=== PATIENT | male | born 1960 | race Caucasian/White ===

== ENCOUNTER 2018-01-15 08:56 | Day surgery (SDC) | payer OTHER ==
[2018-01-15 10:20] LABS: ADD MAN DIFF? NO
[2018-01-15 10:30] LABS: INR 1.25; PROTIME 15.9 Sec (11.9-14.9); PT RATIO 1.2
[2018-01-15 10:31] LABS: ABNORMAL IP MESSAGE 1; HEMATOCRIT 39.2 % (42.0-52.0); HEMOGLOBIN 13.5 g/dl (14.0-18.0); MEAN CORPUSCULAR HGB CONC 34.4 g/dl (32.0-37.0); MEAN CORPUSCULAR VOLUME 84.1 fl (82.0-101.0); MEAN PLATELET VOLUME 8.7 fl (7.4-10.4); PARTIAL THROMBOPLASTIN TIME 33.8 Sec (25.0-35.0); PLATELET COUNT 71 10^3/UL (140-415); POSITIVE DIFF @See below; RED BLOOD COUNT 4.66 10^6/ul (4.70-6.10)
[2018-01-15 10:31] LABS: WHITE BLOOD COUNT 1.7 10^3/ul (4.8-10.8)
[2018-01-15 10:34] LABS: ALANINE AMINOTRANSFERASE 62 IU/L (13-69); ALBUMIN 4.1 g/dl (3.3-4.9); ALBUMIN/GLOBULIN RATIO 0.91; ALKALINE PHOSPHATASE 126 IU/L (42-121); ANION GAP 14 (8-16); ASPARTATE AMINO TRANSFERASE 62 IU/L (15-46); BILIRUBIN,INDIRECT 0.9 mg/dl (0-1.1); BILIRUBIN,TOTAL 0.9 mg/dl (0.2-1.3); CARBON DIOXIDE 23 mmol/L (21-31); CHLORIDE 110 mmol/L (97-110); GLUCOSE 132 mg/dl (70-220); TOTAL PROTEIN 8.6 g/dl (6.1-8.1)
[2018-01-15 10:36] LABS: HOLD TRANSMISSIONS 1
[2018-01-15 10:38] LABS: BLOOD UREA NITROGEN 11 mg/dl (7-20); CALCIUM 8.5 mg/dl (8.4-10.2); CREATININE 0.67 mg/dl (0.61-1.24); POTASSIUM 4.4 mmol/L (3.5-5.1); SODIUM 143 mmol/L (135-144)
[2018-01-15 11:07] LABS: ANISOCYTOSIS 2+ (0-0); BAND NEUTROPHILS % (M) 2 % (0-4); EOSINOPHILS % (M) 2 % (0-7); LYMPHOCYTES #M 0.6 10^3/ul (0.8-2.9); LYMPHOCYTES % (M) 36 % (15-51); MICROCYTOSIS 2+ (0-0); MONOCYTE #M 0.1 10^3/ul (0.3-0.9); MONOCYTES % (M) 8 % (0-11); OVALOCYTES 1+ (0-0); PLATELET ESTIMATE DECREASED; POIKILOCYTOSIS 1+ (0-0); REACTIVE LYMPHOCYTES #M 0.1 10^3/ul (0.0-0.0); REACTIVE LYMPHOCYTES% (M) 6 % (0-0); SEG NEUT #M 0.8 10^3/ul (1.6-7.5); SEGMENTED NEUTROPHILS (M) % 46 % (39-77); SMUDGE%M 1 % (0-0)
[2018-01-15] MEDS ORDERED: MIDAZOLAM 1 MG/ML 2 ML INJ (11:46)
[2018-01-15] MEDS ORDERED: ROCURONIUM 50 MG INJ (11:46)
[2018-01-15] MEDS ORDERED: PROPOFOL 20 ML (11:46)
[2018-01-15] MEDS ORDERED: CEFAZOLIN 1 GM INJ (11:46)
[2018-01-15] MEDS ORDERED: GLYCOPYRROLATE 0.4 MG INJ (11:46)
[2018-01-15] MEDS ORDERED: ONDANSETRON 4 MG INJ (11:46)
[2018-01-15] MEDS ORDERED: FENTAnyl 50 MCG/ML VIAL (11:46)
[2018-01-15] MEDS ORDERED: DEXAMETHASONE 4 MG/ML 1 ML INJ (11:46)
[2018-01-15] MEDS ORDERED: NEOSTIGMINE 3 MG/3 ML SYRINGE (11:46)
[2018-01-15] MEDS: POLYMYXIN/BACITRACIN 1L IRRIG IRR (12:10)
[2018-01-15] MEDS: ROPIVACAINE 0.5 % 30 ML VIAL (12:10)
[2018-01-15] MEDS ORDERED: SUGAMMADEX SODIUM 200 MG/2 ML VIAL IV (12:34)
== END 2018-01-15 15:28 | disposition home or self-care (01) ==
LOC: SDS 08:56
DX: T84.89XA Other specified complication of internal orthopedic prosthetic devices, implants and grafts, initial encounter (principal); Y79.1 Therapeutic (nonsurgical) and rehabilitative orthopedic devices associated with adverse incidents; Y83.8 Other surgical procedures as the cause of abnormal reaction of the patient, or of later complication, without mention of misadventure at the time of the procedure; M20.21 Hallux rigidus, right foot; I10 Essential (primary) hypertension; E11.9 Type 2 diabetes mellitus without complications
CPT/HCPCS: 28291; 73610-RT; 80053; 82962; 85025; 85610; 85730; 88304; 88311

== ENCOUNTER 2018-07-02 05:59 | Day surgery (SDC) | payer OTHER ==
[2018-07-02] MEDS ORDERED: FENTAnyl 50 MCG/ML VIAL (08:25)
[2018-07-02] MEDS ORDERED: MIDAZOLAM 1 MG/ML 2 ML INJ ×2 (08:25)
== END 2018-07-02 12:02 | disposition home or self-care (01) ==
LOC: GIL 05:59
DX: D12.5 Benign neoplasm of sigmoid colon (principal); K64.8 Other hemorrhoids; K64.4 Residual hemorrhoidal skin tags; E11.9 Type 2 diabetes mellitus without complications
CPT/HCPCS: 45380; 82962; 88305